=== PATIENT | female | born 2000 | race Caucasian/White ===

== ENCOUNTER 2023-03-09 12:48 | Inpatient (IN) | payer OTHER ==
[~2023-03-09] VITALS: Ht 157.5 cm; Wt 95.0 kg
[~2023-03-09 12:48] MED LIST: PRENATAL TABLET PO
--- NOTE | 2023-03-17 19:00 | NUR ---
at 38+6 weeks gestation ambulated onto unit accompained by spouse for scheduled IOL. complicated by GDMA1 and inducted HTN. Oriented to labor room. Changed into patient gown. Placed on FHR monitor. Consents obtained. IV placed with labs collected during placement. Pt denies ctx and vag bleeding. Pt endorses positive movement. Pt reports intermittent headaches relieved with PO tylenol. Pt currently denies BOYER. Pt denies vision changes. SVE by RN. POC disucssed with pt. Pts questions/concers addressed and answered.
[2023-03-17 19:30] VITALS: BP 138/90; PULSE 93; TEMP 98.6
[2023-03-17 19:51] LABS: EOS % 0.4 % (0.0-4.0); GRAN # 4.9 K/mm3 (1.4-6.5); GRAN % 67.9 % (42.2-75.2); HEMATOCRIT 38.5 % (37.0-47.0); HEMOGLOBIN 13.1 g/dl (12.5-16.0); LYMPH # 1.5 K/mm3 (1.2-3.4); LYMPH % 20.9 % (20.0-51.0); MEAN CELL VOLUME 86 fl (80.0-100.0); MEAN CORPUSCULAR HEMOGLOBIN 29 pg (27-31); MEAN CORPUSCULAR HGB CONC 34 g/dl (33.0-37.0); MEAN PLATELET VOLUME 11.8 fl (7.4-10.4); MONO # 0.8 K/mm3 (0.1-0.6); MONO % 10.5 % (1.7-9.3); PLATELET COUNT 171 K/mm3 (130-400); RED BLOOD COUNT 4.46 M/mm3 (4.10-5.30); REDCELL DISTRIBUTION WIDTH-CV 14.7 % (11.5-14.5)
[2023-03-17 20:00] VITALS: BP 135/89; PULSE 84
[2023-03-17 20:11] LABS: ALBUMIN 2.8 gm/dL (3.5-5.0); BILIRUBIN,TOTAL 0.2 mg/dL (0.2-1.2); CALCIUM 9.5 mg/dL (8.4-10.2); CREATININE, serum 0.59 mg/dL (0.57-1.11); TOTAL PROTEIN 6.1 gm/dL (6.2-8.1)
--- NOTE | 2023-03-17 20:16 | NUR ---
Spoke in person with Dr. Jones. Reviewed POC. Reported Pt arrival, SVE, and reviewed labs. Dr. Jones states POC max of two doses PV 25mcg Miso then IV Pit titration per orders 4 hours following last dose of miso. If second dose of miso is contraindicated r/t ctx then move on to the IV Pit per orders. States may have reg diet while on Miso. Stats begin checking fingerstick blood glucose q2hr when starting IV Pit.
[2023-03-17 20:30] VITALS: BP 127/75; PULSE 83
--- NOTE | 2023-03-17 20:30 | NUR ---
25mcg PV miso placed by RN. Educated pt to remain in bed for 2 hours. Educated will continue to monitor CTX & FHR.
--- NOTE | 2023-03-17 20:48 | NUR ---
2036: Dr. Jones at BS answering pt questions/concers. 2039: Dr. Jones BS US to confirmation of head placement. Vtx confirmed.
[2023-03-17 21:00] VITALS: BP 132/85; PULSE 79
[2023-03-17 21:30] VITALS: BP 137/92; PULSE 84
[2023-03-17 22:00] VITALS: BP 114/59; PULSE 75
[2023-03-18] VITALS (63 sets, daily range): BP systolic 111–167; BP diastolic 56–101; PULSE 69–120; TEMP 98.1–98.5
--- NOTE | 2023-03-18 03:47 | NUR ---
0326: Pt calls out to nurses station reporting SROM. RN to bedside. Pt evaluated clear fluid noted. 0330: SVE by RN: -/-3 with clear fluid noted. 0335: Pt ambulated to BR. 0340: Pt ambulated back to bed. Requesting eidural at this time. 0345: Jhonny Ram CRNA notivied via phone pt requesting epidural at this time. States he will be on his way in. 0350: Dr. Jones at nurses station. Reported update on patient. SROM clear reported. SVE reported. Anes notified and pending epidural placement. Dr. Toribio acknowledged.
--- NOTE | 2023-03-18 04:17 | NUR ---
0405: PT SITTING ON SIDE OF BED POSITIONED FOR EPIDURAL PLACMENT. DIFFICULTY TRACING FHR DUE TO MATERNAL POSITIONING. 0408: Jhonny CERVANTES CRNA AT BEDSIDE FOR EPIDURAL PLACEMENT. 0417: SINGLE SHOT BY Jhonny CERVANTES CRNA. 0423: PT REPOSITIONED LOW-SMITH WITH LEFT TILT. EPIDURAL PUMP PROGRAMED AND STARTED BY Jhonny CERVANTES CRNA. PT STATES BEGINNING TO FEEL RELIEF FROM EPIDURAL. PT EDUCATED ON STRICT BEDREST. PT EDUCATED ON CONTINOUS FHR MONITORING AND AUTOMATIC BLOOD PRESSURE READINGS: TO LEAVE BP CUFF IN PLACE. PT AND SPOUSE VERBALIZED UNDERSTANDING.
[2023-03-18 05:39] LABS: TRICYCLIC ANTIDEPRESS URINE NEGATIVE
--- NOTE | 2023-03-18 08:55 | NUR ---
0852- AT BEDSIDE TO ASSESS PATIENT PROGRESS. 0855- SVE /-2, FOREBAG AROM AT THIS TIME, CLEAR FLUID.
--- NOTE | 2023-03-18 09:48 | NUR ---
0935- PATIENT CALLS OUT TO NURSES STATION REPORTING SWELLING AT IV SITE. RN TO BEDSIDE, AREA ABOVE IV SITE BLANCHES AND COOL TO TOUCH WITH EDEMA. PITOCIN AND LR TURNED OFF AT THIS TIME. 0945- NEW IV SITE OBTAINED. 0948- LR AND PITOCIN RESUMED AT 12mU/HR PREVIOUSLY INFUSING. COLD COMPRESS ON INFILTRATED SITE.
--- NOTE | 2023-03-18 12:35 | NUR ---
[facility] PATIENT REPOSITIONED TO RIGHT LATERAL, PRASAD CATHETER IS FOUND IN BED WITH BALLOON DEFLATED.
--- NOTE | 2023-03-18 14:45 | NUR ---
1437- E 0. 1442- NOTIFIED OF PATIENT PROGRESS, SEE PHYSICIAN NOTIFICATION. 1445- THIS RN AT BEDSIDE TO BEGIN PUSHING WITH PATIENT. PATIENT PUSHING WITH GOOD EFFORT, DIFFICULTY TRACING FHR.
--- NOTE | 2023-03-18 16:15 | NUR ---
DIFFICULTY TRACING FHR AT THIS TIME. THIS RN ADJUSTING EFM BETWEEN CONTRACTIONS.
--- NOTE | 2023-03-18 16:51 | NUR ---
1625- NOTIFIED OF PATIENT PROGRESS, SEE PHYSICIAN NOTIFICATION. 1640- AT BEDSIDE TO ASSESS PATIENT PUSHING, PREPARES FOR DELIVERY. 1642- BEGINS PUSHING WITH PATIENT. 1646- DIFFICULTY TRACING FHR WITH EFM, OBTAINS PATIENT CONSENT TO CUT EPISIOTOMY. 1647- HEAD DELIVERED WITH CONTRACTION, PATIENT HAVING DIFFICUTLY PUSHING SHOULDERS OUT. HEAD OF BED LOWERED BY KIM AND YAMILET MANEUVER PERFROMED BY THIS RN. 1648- SHOULDERS DELIVERED. "MILD SHOULDER DYSTOCIA" PER , 50 SECONDS BETWEEN HEAD AND BODY. 1651- SPONTANEOUS DELIVERY OF PLACENTA, PITOCIN STARTED AT 333mU/HR ORDERED AND PER PROTOCOL. 1655- GIVES VERBAL ORDER FOR TXA AND RECTAL CYTOTEC. SEE eMAR. 1700- GIVES VERBAL ORDER FOR HEMABATE. SEE eMAR.
--- NOTE | 2023-03-18 17:30 | NUR ---
AT BEDSIDE TO ASSESS PATIENTS BLEEDING. PATIENT BLEEDING STEADILY WITH FUNDAL MASSAGE. GIVES VERBAL ORDER FOR A SECOND DOSE OF HEMABATE, SEE eMAR.
--- NOTE | 2023-03-18 19:50 | NUR ---
PT AMBULATED TO BR WITH RN ASSIST X1. FULL WEIGHT BEARING. RIGHT LEG LESS STEADY THAN LEFT LEG BUT ABLE TO AMBULATE. PT TO BR. PT UNABLE TO VOID AT THIS TIME. RN PROVIDED PERICARE EDUCATION TO PT. PT PERFORMED PERICARE. RN ASSISTED PT INTO MESH UNDERWEAR AND A CLEAN GOWN. PT AMBULATED BACK TO LABOR BED. PT TRANSFERRED ONTO DMITRIY STEAD FOR TRANSFER TO PP ROOM. PT TOLORATED AMBULATION AND ROOM TRANSFER DENYING LIGHTHEADEDNESS/DIZZINESS. PT ORIENTED TO PP ROOM. PT DENIES QUESTIONS/CONCERNS.
[2023-03-19 00:05] VITALS: BP 125/75; PULSE 106; TEMP 98.5
[2023-03-19 04:24] VITALS: BP 129/69; PULSE 97; TEMP 98.1
[2023-03-19 06:19] LABS: HEMATOCRIT 23.4 % (37.0-47.0)
[2023-03-19 06:20] LABS: HEMOGLOBIN 8.1 g/dl (12.5-16.0)
[2023-03-19 08:00] VITALS: BP 120/62; PULSE 80; TEMP 98
--- NOTE | 2023-03-19 15:40 | NUR ---
SW obtained referral providing screening for presence of illegal drugs in expectant mother. SW reviewed screen and did not observe any postive screens at this time on 03/19/2023. SW met with nurse to confirm observance and nurse reviewed filed and provided she was not aware and did not see any informaton pertaining to consult for illegal drugs.
[2023-03-19 16:23] VITALS: BP 127/79; PULSE 89; TEMP 98
[2023-03-19 19:00] VITALS: BP 135/99; PULSE 110; TEMP 98.2
[2023-03-20 05:00] VITALS: BP 126/79; PULSE 84; TEMP 97.9
[2023-03-20 07:32] VITALS: BP 129/72; PULSE 86; TEMP 97.9
[2023-03-20] MEDS ORDERED: IBU600 MG PO (09:32)
[2023-03-20] MEDS ORDERED: ROXICODONE 55 MG/TAB PO (09:33)
[2023-03-20] MEDS ORDERED: FERROUS SU325 MG/TAB PO (09:38)
== END 2023-03-20 10:56 | disposition home or self-care (01) | DRG 806 ==
LOC: OB 03-17 12:47 → LDR 03-17 20:04 → OB 03-18 19:47
PROVIDERS: ADMIT Obstetrics & Gynecology
PROC: 10E0XZZ Delivery of Products of Conception, External Approach (ICD-10-PCS; principal; 2023-03-18)
PROC: 0KQM0ZZ Repair Perineum Muscle, Open Approach (ICD-10-PCS; 2023-03-18)
PROC: 0W8NXZZ Division of Female Perineum, External Approach (ICD-10-PCS; 2023-03-18)
DX: O13.4 Gestational [pregnancy-induced] hypertension without significant proteinuria, complicating childbirth (principal); D62 Acute posthemorrhagic anemia; Z37.0 Single live birth; O24.420 Gestational diabetes mellitus in childbirth, diet controlled; Z3A.38 38 weeks gestation of pregnancy; O99.344 Other mental disorders complicating childbirth; F41.9 Anxiety disorder, unspecified; F32.A Depression, unspecified; O70.1 Second degree perineal laceration during delivery; O99.284 Endocrine, nutritional and metabolic diseases complicating childbirth; E28.2 Polycystic ovarian syndrome; O66.0 Obstructed labor due to shoulder dystocia; O90.81 Anemia of the puerperium; O72.1 Other immediate postpartum hemorrhage; O76 Abnormality in fetal heart rate and rhythm complicating labor and delivery; O77.0 Labor and delivery complicated by meconium in amniotic fluid; O69.81X0 Labor and delivery complicated by cord around neck, without compression, not applicable or unspecified; Z23 Encounter for immunization
CPT/HCPCS: J2590; J2795; J7120